=== PATIENT | male | born 1970 | race Two or more races ===

== ENCOUNTER 2023-05-03 22:14 | Observation (INO) | payer BC, OTHER ==
--- NOTE | 2023-05-03 22:23 | ED ---
General Adult HPI <Caleb Burk - Last Filed: 05/03/23 22:26> <Tyler Hayes - Last Filed: 05/04/23 02:01> <Bina Madsen - Last Filed: 05/05/23 11:19> - General Chief complaint: Skin/Abscess/Foreign Body Stated complaint: Abscess Left Thigh Time Seen by Provider: 05/03/23 22:23 - History of Present Illness Initial comments: 52 Old male presents to the ED with a chief complaint of skin problem. States a pproximately a month ago experience pain to the back of his right thigh. Nontender an abscess there and was treated with antibiotics. Most recently started on Bactrim. Despite this, states worsening symptoms. No fever or chills. (Caleb Burk) 52-year-old male transferred from [facility] for surgical evaluation of multiple abscesses on his left lower back and buttock's and medial right thigh. Patient denies fever. He had an inpatient stay at out side hospital with IV antibiotics and was discharged on Bactrim. His abscesses have reoccurred and he was sent for surgical evaluation of multiple abscesses. He has a history of hidradenitis and is a current smoker. (Tyler Hayes) - Related Data Home Medications Medication Instructions Recorded Confirmed Albuterol Sulfate [Albuterol 2 puff INHALATION RT-Q4H PRN 05/04/23 05/04/23 Sulfate Hfa] Apixaban [Eliquis] 5 mg PO BID 05/04/23 05/04/23 Citalopram Hydrobromide [CeleXA] 40 mg PO HS 05/04/23 05/04/23 Dapagliflozin Propanediol [Farxiga] 5 mg PO DAILY 05/04/23 05/04/23 Diltiazem Cd [Cardizem CD] 180 mg PO DAILY 05/04/23 05/04/23 Flecainide Acetate [Tambocor] 100 mg PO Q12H 05/04/23 05/04/23 Montelukast [Singulair] 10 mg PO HS 05/04/23 05/04/23 Omeprazole 40 mg PO DAILY 05/04/23 05/04/23 Pravastatin Sodium [Pravachol] 40 mg PO DAILY 05/04/23 05/04/23 Sulfamethox-Tmp 800-160Mg [Bactrim 1 tab PO BID 05/04/23 05/04/23 DS 800-160 mg] Testosterone Cypionate 200 mg IM Q14D 05/04/23 05/04/23 [Depo-Testosterone] Theophylline 12 Hour [Atif-Dur] 300 mg PO Q12H 05/04/23 05/04/23 Allergies Allergy/AdvReac Type Severity Reaction Status Date / Time diphenhydramine Allergy Dyspnea Verified 05/04/23 07:54 [From Benadryl] ibuprofen [From Motrin] Allergy Dyspnea Verified 05/05/23 08:57 Review of Systems ROS Other: All systems not noted in ROS Statement are negative. <Caleb Burk - Last Filed: 05/03/23 22:26> ROS Other: All systems not noted in ROS Statement are negative. <Tyler Hayes - Last Filed: 05/04/23 02:01> ROS Other: All systems not noted in ROS Statement are negative. <Bina Madsen - Last Filed: 05/05/23 11:19> ROS Statement: Those systems with pertinent positive or pertinent negative responses have been documented in the HPI. General Exam <Caleb Burk - Last Filed: 05/03/23 22:26> General appearance: alert, in no apparent distress Head exam: Present: atraumatic, normocephalic Eye exam: Present: normal appearance, PERRL ENT exam: Present: normal exam Neck exam: Present: normal inspection. Absent: tenderness, meningismus Respiratory exam: Present: normal lung sounds bilaterally. Absent: respiratory distress, wheezes Cardiovascular Exam: Present: regular rate, normal rhythm GI/Abdominal exam: Present: soft. Absent: distended, tenderness Extremities exam: Present: other (Induration in the right medial thigh, multiple palpable abscesses) Back exam: Present: other (Induration with small central fluctuance in the left low back region just above the left gluteal) Neurological exam: Present: alert, oriented X3 Skin exam: Present: warm, dry, intact <Tyler Hayes - Last Filed: 05/04/23 02:01> - General Exam Comments Initial Comments: Visual Physical Exam Vital signs reviewed General: Well-appearing, nontoxic, no acute distress. Head: Normocephalic, atraumatic Eyes: PERRLA, EOMI ENT: Airway patent Chest: Nonlabored breathing Skin: No visual rash, normal skin tone Neuro: Alert and oriented 3 Musculoskeletal: No gross abnormalities (Caleb Burk) Course Vital Signs 05/03/23 05/04/23 05/04/23 22:22 01:38 02:00 Temperature 98.0 F Pulse Rate 72 65 91 Pulse Rate [ Pulse Oximetery ] Respiratory 20 18 18 Rate Blood Pressure 139/79 136/69 138/77 Blood Pressure [Right Arm] O2 Sat by Pulse 94 L 95 95 Oximetry 05/04/23 13:38 Temperature Pulse Rate Pulse Rate [ 62 Pulse Oximetery ] Respiratory 12 Rate Blood Pressure Blood Pressure 138/85 [Right Arm] O2 Sat by Pulse 95 Oximetry Procedures - Incision & Drainage Consent Obtained: verbal consent Indication: Abscess Site: lower extremity Size (cm): 3 (additional abscess adjacet to this one measuring approximately 2cm) Anesthetic Used: lidocaine 1%, with epi Amount (mLs): 5 (5 mL used for adjacent abscess) I&D Cleaning Method: Chloroprep Sterile Field Used?: Yes Scalpel Used: #11 Ultrasound used: No Needle Aspiration Performed?: No Irrigation Performed?: Yes I&D Drainage Obtained: Pus, Blood Culture Obtained?: Yes Patient Tolerated Procedure: well <Bina Madsen - Last Filed: 05/05/23 11:19> Medical Decision Making <Caleb Burk - Last Filed: 05/03/23 22:26> <yTler Hayes - Last Filed: 05/04/23 02:01> - Lab Data Result diagrams: 05/05/23 05:43 05/05/23 05:43 <Bina Madsen - Last Filed: 05/05/23 11:19> - Medical Decision Making Quicknote performed. Signed Caleb Burk PA-C (Caleb Burk) Was pt. sent in by a medical professional or institution ([facility], TECHNOLOGY CONSULTANT, urgent care, hospital, or [place] health care facility...) When possible be specific @ -Sent from [place] for surgical evaluation Did you speak to anyone other than the patient for history (EMS, parent, family, police, friend...)? What history was obtained from this source @ -No Did you review nursing and triage notes (agree or disagree)? Why? @ -I reviewed and agree with nursing and triage notes Were old charts reviewed (outside hosp., previous admission, EMS record, old EKG, old radiological studies, urgent care reports/EKG's, [place] health care facility records)? Report findings @ -No old charts were reviewed Differential Diagnosis (chest pain, altered mental status, abdominal pain women, abdominal pain men, vaginal bleeding, weakness, fever, dyspnea, syncope, headache, dizziness, GI bleed, back pain, seizure, CVA, palpatations, mental health, musculoskeletal)? @ -Abscess, cellulitis, hidradenitis, EKG interpreted by me (3pts min.). @ -As above X-rays interpreted by me (1pt min.). @ -None done CT interpreted by me (1pt min.). @ CT of the abdomen and pelvis and right lower extremity was obtained at outside hospital, images were loaded and reviewed by myself, there is several areas of fluid collection within the right medial thigh with surrounding cellulitis. U/S interpreted by me (1pt. min.). @ -None done What testing was considered but not performed or refused? (CT, X-rays, U/S, labs)? Why? @ -None What meds were considered but not given or refused? Why? @ -None Did you discuss the management of the patient with other professionals (professionals i.e. , PA, TECHNOLOGY CONSULTANT, lab, RT, psych nurse, psychologist social, new account interviewer, teacher, health promotion officer, case sealer)? Give summary @ -EM Was smoking cessation discussed for >3mins.? @ -No Was critical care preformed (if so, how long)? @ -No Were there social determinants of health that impacted care today? How? (Homelessness, low income, unemployed, alcoholism, drug addiction, transportation, low edu. Level, literacy, decrease access to med. care, longterm, rehab)? @ -No Was there de-escalation of care discussed even if they declined (Discuss DNR or withdrawal of care, Hospice)? DNR status @ -No What co-morbidities impacted this encounter? (DM, HTN, Smoking, COPD, CAD, Cancer, CVA, ARF, Chemo, Hep., AIDS, mental health diagnosis, sleep apnea, morbid obesity)? @ -[Diabetes, smoking Was patient admitted / discharged? Hospital course, mention meds given and rou te, prescriptions, significant lab abnormalities, going to OR and other pertinent info. @ -[52 -year-old male transferred from outside hospital for surgical evaluation of multiple abscesses, hidradenitis. Patient having given IV antibiotics prior to transfer. He will be continued on these antibiotics. Repeat laboratory studies will be obtained including CBC and CMP. He should admitted to internal medicine with surgery on consult. Undiagnosed new problem with uncertain prognosis? @ -No Drug Therapy requiring intensive monitoring for toxicity (Heparin, Nitro, Insulin, Cardizem)? @ -No Were any procedures done? @ -No Diagnosis/symptom? @ -[Hidradenitis, multiple abscesses, failed outpatient treatment Acute, or Chronic, or Acute on Chronic? @ -default Uncomplicated (without systemic symptoms) or Complicated (systemic symptoms)? @ -default Side effects of treatment? @ -No Exacerbation, Progression, or Severe Exacerbation? @ -No Poses a threat to life or bodily function? How? (Chest pain, [place], [place], pneumonia, PE, COPD, DKA, ARF, appy, cholecystitis, CVA, Diverticulitis, Homicidal, Suicidal, threat to staff... and all critical care pts) @ -[ Low Risk at this time (Tyler Hayes) Disposition <Caleb Burk - Last Filed: 05/03/23 22:26> Is patient prescribed a controlled substance at d/c from ED?: No Time of Disposition: 01:58 <Tyler Hayes - Last Filed: 05/04/23 02:01> <Bina Madsen - Last Filed: 05/05/23 11:19> Clinical Impression: Hidradenitis suppurativa, Abscess Disposition: ADMITTED IP TO THIS HOSP Condition: Stable
[2023-05-04] MEDS ORDERED: VANCOMYCIN IV PER PHARMACY 1 EACH MISC MISCELLANE PRN (01:50)
[2023-05-04] MEDS ORDERED: IBUPROFEN 400 MG TAB PO PRN (01:51)
[2023-05-04] MEDS ORDERED: NALOXONE 0.4 MG/ML 1 ML VIAL IV PRN (01:51)
[2023-05-04] MEDS ORDERED: PIPERACILLIN-TAZOBACTAM 3.375 GM in SODIUM CHLORIDE 0.9% 100 ML IVPB STA (01:51)
[2023-05-04] MEDS ORDERED: ACETAMINOPHEN TAB 325 MG TAB PO PRN (01:51)
[2023-05-04] MEDS ORDERED: VANCOMYCIN 2,000 MG in SODIUM CHLORIDE 0.9% 500 ML 500 ML IVPB STA (01:52)
[2023-05-04] MEDS ORDERED: MORPHINE SULFATE 4 MG/ML SYRINGE IVP STA ×3 (02:17→09:16)
[2023-05-04] MEDS: SODIUM CHLORIDE 0.9% 1,000 ML IV SCH ×2 (02:47→16:37)
[2023-05-04 03:35] LABS: Basophils # (A) 0.1 k/uL (0-0.2); Basophils % (A) 1 %; Eosinophils # (A) 0.3 k/uL (0-0.7); Eosinophils % (A) 5 %; HCT 45.5 % (39.0-53.0); HGB 15.2 gm/dL (13.0-17.5); Lymphocytes # (A) 1.5 k/uL (1.0-4.8); Lymphocytes % (A) 25 %; MCH 29.9 pg (25.0-35.0); MCHC 33.3 g/dL (31.0-37.0); MCV 89.7 fL (80.0-100.0); Mean Platelet Volume 8.8; Monocytes # (A) 0.6 k/uL (0-1.0); Monocytes % (A) 10 %; Neutrophils # (A) 3.3 k/uL (1.3-7.7); Neutrophils % (A) 55 %; Platelet Count 185 k/uL (150-450); RBC 5.07 m/uL (4.30-5.90); RDW 13.6 % (11.5-15.5)
[2023-05-04 03:36] LABS: ALT 24 U/L (4-49); AST 24 U/L (17-59); African American GFR (CKD) 89 (>60 ml/min/1.73 sqM); Albumin 3.8 g/dL (3.5-5.0); Alkaline Phosphatase 54 U/L (38-126); Anion Gap 10 mmol/L; Blood Urea Nitrogen 28 mg/dL (9-20); Calcium 8.8 mg/dL (8.4-10.2); Carbon Dioxide 25 mmol/L (22-30); Chloride 100 mmol/L (98-107); Glucose 209 mg/dL (74-99); Non-African American GFR(CKD) 77 (>60 ml/min/1.73 sqM); Sodium 135 mmol/L (137-145); Total Bilirubin 0.4 mg/dL (0.2-1.3); Total Protein 6.6 g/dL (6.3-8.2)
[2023-05-04] MEDS ORDERED: KETOROLAC 15 MG/ML 1 ML VIAL IVP STA (09:16)
[2023-05-04] MEDS ORDERED: LIDOCAINE 1%-EPI 1:100,000 50 ML VIAL SQ STA (09:16)
[2023-05-04] MEDS ORDERED: PIPERACILLIN-TAZOBACTAM 3.375 GM in SODIUM CHLORIDE 0.9% 100 ML IVPB SCH (10:00)
[2023-05-04 11:57] LABS: Glucose,Whole Blood 248 mg/dL (70-110)
[2023-05-04] MEDS ORDERED: ALBUTEROL NEBULIZED 2.5 MG/3 ML INHALATION PRN (12:42)
--- NOTE | 2023-05-04 12:46 | P.HPIM ---
History of Present Illness H&P Date: 05/04/23 History of present illness; patient 72-year-old gentleman past medical history s ignificant for hidradenitis suppurativa, skin abscesses who presented ER for evaluation for multiple skin abscesses. Patient was being treated outpatient for abscess on the medial side of his right thigh with oral Bactrim. Patient started that he was all right one month back when he started noticing swelling on the medial side of his right thigh, it gradually becoming enlarged and painful. It was no complain a fever or chills. No nausea, abdominal pain. No complaint of chest pain or shortness of breath. Because of this patient went to ER which drained it and placed him on oral antibiotics. Swelling and pain continued to persist even while on antibiotics. Patient went back to the [facility]. Patient was later transferred from [facility] to [facility] Initial lab work done in the ER showed WBC 6, hemoglobin 15.2, platelet count 185, sodium 1:30, potassium 4, BUNs 28, creatinine 1.09, AST 24, AST 24 Patient was admitted to medicine service REVIEW OF SYSTEMS: CONSTITUTIONAL: No fever, no malaise, no fatigue. HEENT: No recent visual problems or hearing problems. Denied any sore throat. CARDIOVASCULAR: No chest pain, orthopnea, PND, no palpitations, no syncope. PULMONARY: No shortness of breath, no cough, no hemoptysis. GASTROINTESTINAL: No diarrhea, no nausea, no vomiting, no abdominal pain. NEUROLOGICAL: No headaches, no weakness, no numbness. HEMATOLOGICAL: Denies any bleeding or petechiae. GENITOURINARY: Denies any burning micturition, frequency, or urgency. MUSCULOSKELETAL/RHEUMATOLOGICAL: Redness on medial side of right thigh ENDOCRINE: Denies any polyuria or polydipsia. The rest of the 14-point review of systems is negative. PHYSICAL EXAMINATION: GENERAL: The patient is alert and oriented x3, not in any acute distress. Well developed, well nourished. HEENT: Pupils are round and equally reacting to light. EOMI. No scleral icterus. No conjunctival pallor. Normocephalic, atraumatic. No pharyngeal erythema. No thyromegaly. CARDIOVASCULAR: S1 and S2 present. No murmurs, rubs, or gallops. PULMONARY: Chest is clear to auscultation, no wheezing or crackles. ABDOMEN: Soft, nontender, nondistended, normoactive bowel sounds. No palpable organomegaly. MUSCULOSKELETAL: No joint swelling or deformity. EXTREMITIES: Erythema medial side of his right thigh, fluctuation not appreciated NEUROLOGICAL: Gross neurological examination did not reveal any focal deficits. SKIN: Multiple skin abscesses on the back, thigh and buttock area Assessment and plan Right thigh abscess Multiple skin abscesses Failed outpatient treatment History of hydradenitis suppurativa Monitor vital signs Monitor CBC Monitor CMP Continue wound care. Continue IV Zosyn and vancomycin Continue pain management Consults surgery consult ID Resume home meds Labs and medication were reviewed.. Continue same treatment. Continue with symptomatic treatment. Resume home medication. Monitor labs and vitals. DVT and GI prophylaxis. Further recommendations as per clinical course of the patient Dictation was produced using [employer] dictation software. please excuse any grammatical, word or spelling errors. Past Medical History Past Medical History: COPD, Diabetes Mellitus, Hyperlipidemia, Hypertension, Rheumatoid Arthritis (RA) Past Surgical History: Orthopedic Surgery Past Psychological History: No Psychological Hx Reported Smoking Status: Current every day smoker Past Alcohol Use History: Occasional Past Drug Use History: None Reported Medications and Allergies Home Medications Medication Instructions Recorded Confirmed Type Albuterol Sulfate [Albuterol 2 puff INHALATION RT-Q4H PRN 05/04/23 05/04/23 H istory Sulfate Hfa] Apixaban [Eliquis] 5 mg PO BID 05/04/23 05/04/23 History Citalopram Hydrobromide [CeleXA] 40 mg PO HS 05/04/23 05/04/23 History Dapagliflozin Propanediol [Farxiga] 5 mg PO DAILY 05/04/23 05/04/23 History Diltiazem Cd [Cardizem CD] 180 mg PO DAILY 05/04/23 05/04/23 History Flecainide Acetate [Tambocor] 100 mg PO Q12H 05/04/23 05/04/23 History Montelukast [Singulair] 10 mg PO HS 05/04/23 05/04/23 History Omeprazole 40 mg PO DAILY 05/04/23 05/04/23 History Pravastatin Sodium [Pravachol] 40 mg PO DAILY 05/04/23 05/04/23 History Sulfamethox-Tmp 800-160Mg [Bactrim 1 tab PO BID 05/04/23 05/04/23 History DS 800-160 mg] Testosterone Cypionate 200 mg IM Q14D 05/04/23 05/04/23 History [Depo-Testosterone] Theophylline 12 Hour [Atif-Dur] 300 mg PO Q12H 05/04/23 05/04/23 History Allergies Allergy/AdvReac Type Severity Reaction Status Date / Time diphenhydramine Allergy Dyspnea Verified 05/04/23 07:54 [From Benadryl] Physical Exam Vitals: Vital Signs Temp Pulse Resp BP Pulse Ox 05/04/23 02:00 91 18 138/77 95 05/04/23 01:38 65 18 136/69 95 05/03/23 22:22 98.0 F 72 20 139/79 94 L Intake and Output 05/03/23 05/04/23 05/04/23 22:59 06:59 14:59 Other: Weight 136.078 kg Results CBC & Chem 7: 05/04/23 03:03 05/04/23 03:03 Labs: Abnormal Lab Results - Last 24 Hours (Table) 05/04/23 Range/Units 03:03 Sodium 135 L (137-145) mmol/L BUN 28 H (9-20) mg/dL Glucose 209 H (74-99) mg/dL
--- NOTE | 2023-05-04 13:34 | P.GSCN ---
History of Present Illness Consult date: 05/04/23 History of present illness: CHIEF COMPLAINT: Right groin abscess HISTORY OF PRESENT ILLNESS: This is a 52-year-old male who has been dealing with right groin abscess an abscess on his back for about 2 months. He initially was at [facility] with IV antibiotics for about 2 weeks and also had an I&D of the right groin abscess at that time. He completed antibiotic treatment was showing improvement after treatment finished he started to have a flare up again and these abscesses. He tried oral antibiotics with no improvement. He then went to [facility] they did a computed tomography scan of the right lower extremity which reported findings compatible with cellulitis with abscess formation and computed tomography scan abdomen and pelvis no evidence for acute abdominal process. Multiple posterior lower back areas with suspected focal inflammation. Patient does have a known history of diabetes. Does have a history of prior abscesses and hidradenitis suppurativa. He is also on Eliquis for Afib. Last dose was last night. Patient seen and examined with Dr. alexander PAST MEDICAL HISTORY: Hidradenitis suppurativa, skin abscesses, diabetes mellitus, atrial fibrillation PAST SURGICAL HISTORY: Past I&D and skin abscess MEDICATIONS: See below ALLERGIES: See below SOCIAL HISTORY: No illicit drug use. REVIEW OF SYSTEMS: CONSTITUTIONAL: Denies fever or chills. HEENT: Denies blurred vision, vision changes, or eye pain. Denies hemoptysis CARDIOVASCULAR: Denies chest pain or pressure. RESPIRATORY: No shortness of breath. GASTROINTESTINAL: See HPI for pertinent findings HEMATOLOGIC: Denies bleeding disorders. GENITOURINARY: Denies any blood in urine or increased urinary frequency. SKIN: Denies pruitis. Denies rash. PHYSICAL EXAM: VITAL SIGNS: Reviewed GENERAL: Well-developed in no acute distress. HEENT: No sclera icterus. Extraocular movements grossly intact. Moist buccal mucosa. Head is atraumatic, normocephalic. No nasal drainage. ABDOMEN: Soft. Nondistended. Nontender right groin swelling with induration and fluctuance NEUROLOGIC: Alert and oriented. Cranial nerves II through XII grossly intact. SKIN:right groin swelling with induration and fluctuance. Back with a couple of areas of induration lower back LABORATORY DATA: WBC 6.0 Hgb 15.2 platelets 185 Sodium 135 potassium 4.0 cr 1.09 Glucose 248 IMAGING: Computed tomography scan as stated above ASSESSMENT: 1. Right groin abscess 2. Hidradenitis suppurativa 3. Multiple areas on the back with skin inflammation 4. Failed outpatient management PLAN: -Continue IV antibiotics -Recommend incision and drainage of right groin abscess -Apply warm compresses -Recommend close management of Diabetes Physician Helper/Driver note has been reviewed by physician. Signing provider agrees with the documented findings, assessment, and plan of care. Past Medical History Past Medical History: COPD, Diabetes Mellitus, Hyperlipidemia, Hypertension, Rheumatoid Arthritis (RA) Past Surgical History: Orthopedic Surgery Past Psychological History: No Psychological Hx Reported Smoking Status: Current every day smoker Past Alcohol Use History: Occasional Past Drug Use History: None Reported Medications and Allergies Home Medications Medication Instructions Recorded Confirmed Type Albuterol Sulfate [Albuterol 2 puff INHALATION RT-Q4H PRN 05/04/23 05/04/23 History Sulfate Hfa] Apixaban [Eliquis] 5 mg PO BID 05/04/23 05/04/23 History Citalopram Hydrobromide [CeleXA] 40 mg PO HS 05/04/23 05/04/23 History Dapagliflozin Propanediol [Farxiga] 5 mg PO DAILY 05/04/23 05/04/23 History Diltiazem Cd [Cardizem CD] 180 mg PO DAILY 05/04/23 05/04/23 History Flecainide Acetate [Tambocor] 100 mg PO Q12H 05/04/23 05/04/23 History Montelukast [Singulair] 10 mg PO HS 05/04/23 05/04/23 History Omeprazole 40 mg PO DAILY 05/04/23 05/04/23 History Pravastatin Sodium [Pravachol] 40 mg PO DAILY 05/04/23 05/04/23 History Sulfamethox-Tmp 800-160Mg [Bactrim 1 tab PO BID 05/04/23 05/04/23 History DS 800-160 mg] Testosterone Cypionate 200 mg IM Q14D 05/04/23 05/04/23 History [Depo-Testosterone] Theophylline 12 Hour [Atif-Dur] 300 mg PO Q12H 05/04/23 05/04/23 History Allergies Allergy/AdvReac Type Severity Reaction Status Date / Time diphenhydramine Allergy Dyspnea Verified 05/04/23 07:54 [From [facility]] Surgical - Exam Vital Signs Temp Pulse Resp BP Pulse Ox 98.0 F 72 20 139/79 94 L 05/03/23 22:22 05/03/23 22:22 05/03/23 22:22 05/03/23 22:22 05/03/23 22:22 Results - Labs 05/04/23 03:03 05/04/23 03:03 Abnormal Lab Results - Last 24 Hours (Table) 05/04/23 Range/Units 03:03 Sodium 135 L (137-145) mmol/L BUN 28 H (9-20) mg/dL Glucose 209 H (74-99) mg/dL Diabetes panel 05/04/23 Range/Units 03:03 Sodium 135 L (137-145) mmol/L Potassium 4.0 (3.5-5.1) mmol/L Chloride 100 (98-107) mmol/L Carbon Dioxide 25 (22-30) mmol/L BUN 28 H (9-20) mg/dL Creatinine 1.09 (0.66-1.25) mg/dL Glucose 209 H (74-99) mg/dL Calcium 8.8 (8.4-10.2) mg/dL AST 24 (17-59) U/L ALT 24 (4-49) U/L Alkaline Phosphatase 54 (38-126) U/L Total Protein 6.6 (6.3-8.2) g/dL Albumin 3.8 (3.5-5.0) g/dL Calcium panel 05/04/23 Range/Units 03:03 Calcium 8.8 (8.4-10.2) mg/dL Albumin 3.8 (3.5-5.0) g/dL Pituitary panel 05/04/23 Range/Units 03:03 Sodium 135 L (137-145) mmol/L Potassium 4.0 (3.5-5.1) mmol/L Chloride 100 (98-107) mmol/L Carbon Dioxide 25 (22-30) mmol/L BUN 28 H (9-20) mg/dL Creatinine 1.09 (0.66-1.25) mg/dL Glucose 209 H (74-99) mg/dL Calcium 8.8 (8.4-10.2) mg/dL Adrenal panel 05/04/23 Range/Units 03:03 Sodium 135 L (137-145) mmol/L Potassium 4.0 (3.5-5.1) mmol/L Chloride 100 (98-107) mmol/L Carbon Dioxide 25 (22-30) mmol/L BUN 28 H (9-20) mg/dL Creatinine 1.09 (0.66-1.25) mg/dL Glucose 209 H (74-99) mg/dL Calcium 8.8 (8.4-10.2) mg/dL Total Bilirubin 0.4 (0.2-1.3) mg/dL AST 24 (17-59) U/L ALT 24 (4-49) U/L Alkaline Phosphatase 54 (38-126) U/L Total Protein 6.6 (6.3-8.2) g/dL Albumin 3.8 (3.5-5.0) g/dL
[2023-05-04] MEDS: DILTIAZEM CD 180 MG CAP.ER.24H PO SCH (13:40)
[2023-05-04] MEDS: FLECAINIDE 50 MG TAB PO SCH ×2 (13:40→20:34)
[2023-05-04] MEDS: PANTOPRAZOLE 40 MG TABLET PO SCH (13:40)
[2023-05-04] MEDS: VANCOMYCIN 2,000 MG in SODIUM CHLORIDE 0.9% 500 ML 500 ML IVPB SCH (14:26)
[2023-05-04 17:29] LABS: Glucose,Whole Blood 137 mg/dL (70-110)
[2023-05-04] MEDS: APIXABAN 5 MG TAB PO SCH (17:33)
[2023-05-04] MEDS: AMPICILLIN-SULBACTAM 3 GM in SODIUM CHLORIDE 0.9% 100 ML IVPB SCH (18:20)
[2023-05-04] MEDS: CITALOPRAM HYDROBROMIDE 20 MG TAB PO SCH (20:34)
[2023-05-04] MEDS: MONTELUKAST 10 MG TAB PO SCH (20:34)
[2023-05-04 21:26] LABS: Glucose,Whole Blood 211 mg/dL (70-110)
[2023-05-04 22:00] VITALS: RESP 16
--- NOTE | 2023-05-04 23:08 | P.CONS ---
History of Present Illness - Reason for Consult Consult date: 05/04/23 Skin abscess with multi failure of outpatient Requesting physician: Lore Carrillo - Chief Complaint Right posterior thigh area pain swelling and drainage x days - History of Present Illness Patient is a 52-year-old male with a past medical history significant for diabetes mellitus hypertension hyperlipidemia rheumatoid arthritis COPD apparently the patient did have a history of recurrent skin and soft tissue infection especially to the right upper posterior thigh area patient presenting to the hospital for evaluation of increasing swelling redness and drainage patient apparently recently has been treated with an IV antibiotic therapy subsequently discharged on Bactrim DS however the patient did not have improvement especially to the right posterior thigh/gluteal area abscess which has been increasing in size becoming more painful with more swelling redness and did have some bloodstained drainage patient did have some chills but denies high-grade fever patient denies having any chest pain shortness of breath or cough no nausea vomiting abdominal pain or any diarrhea on presentation to the hospital the patient was afebrile and no fever have recorded subsequently patient was not tachycardic hypotensive or hypoxic white count of 6.0 creatinine is 1.09, liver enzymes are normal patient was started on vancomycin and Zosyn infectious disease was consulted for further management of antibiotic therapy General surgery has been consulted for possible drainage Review of Systems Positive point and negatives has been mentioned in the HPI, complete review of systems was performed and all other systems are negative Past Medical History Past Medical History: COPD, Diabetes Mellitus, Hyperlipidemia, Hypertension, Rheumatoid Arthritis (RA) Past Surgical History: Orthopedic Surgery Past Psychological History: No Psychological Hx Reported Smoking Status: Current every day smoker Past Alcohol Use History: Occasional Past Drug Use History: None Reported Medications and Allergies Home Medications Medication Instructions Recorded Confirmed Type Albuterol Sulfate [Albuterol 2 puff INHALATION RT-Q4H PRN 05/04/23 05/04/23 History Sulfate Hfa] Apixaban [Eliquis] 5 mg PO BID 05/04/23 05/04/23 History Citalopram Hydrobromide [CeleXA] 40 mg PO HS 05/04/23 05/04/23 History Dapagliflozin Propanediol [Farxiga] 5 mg PO DAILY 05/04/23 05/04/23 History Diltiazem Cd [Cardizem CD] 180 mg PO DAILY 05/04/23 05/04/23 History Flecainide Acetate [Tambocor] 100 mg PO Q12H 05/04/23 05/04/23 History Montelukast [Singulair] 10 mg PO HS 05/04/23 05/04/23 History Omeprazole 40 mg PO DAILY 05/04/23 05/04/23 History Pravastatin Sodium [Pravachol] 40 mg PO DAILY 05/04/23 05/04/23 History Testosterone Cypionate 200 mg IM Q14D 05/04/23 05/04/23 History [Depo-Testosterone] Theophylline 12 Hour [Atif-Dur] 300 mg PO Q12H 05/04/23 05/04/23 History Amoxic-Pot Clav 875-125Mg 1 tab PO BID 10 Days #20 tab 05/06/23 Rx [Augmentin 875-125] Allergies Allergy/AdvReac Type Severity Reaction Status Date / Time diphenhydramine Allergy Dyspnea Verified 05/04/23 07:54 [From Benadryl] ibuprofen [From Motrin] Allergy Dyspnea Verified 05/05/23 08:57 Physical Exam Vitals: Vital Signs Temp Pulse Resp BP Pulse Ox 05/04/23 02:00 91 18 138/77 95 05/04/23 01:38 65 18 136/69 95 05/03/23 22:22 98.0 F 72 20 139/79 94 L Intake and Output 05/03/23 05/04/23 05/04/23 22:59 06:59 14:59 Output Total 800 Balance -800 Output: Urine 800 Other: Voiding Method Toilet # Voids 1 Weight 136.078 kg Results CBC & Chem 7: 05/06/23 04:49 05/06/23 04:49 Labs: Abnormal Lab Results - Last 24 Hours (Table) 05/04/23 05/04/23 Range/Units 03:03 11:55 Sodium 135 L (137-145) mmol/L BUN 28 H (9-20) mg/dL Glucose 209 H (74-99) mg/dL POC Glucose (mg/dL) 248 H (70-110) mg/dL Assessment and Plan Plan: 1patient presented to hospital with increasing pain swelling redness to the right posterior thigh area in this patient who did have history of hidradenitis recently received a course of IV followed by oral Bactrim DS failing oral antibiotic therapy, we will need to cover for both resistant gram-positive as well as gram-negative pathogen 2-await surgical debridement and deep culture 3-we will continue patient on vancomycin pharmacy to dose while watching his kidney function closely however switch Zosyn to Unasyn to decrease risk of nephrotoxicity We will follow on clinical condition and cultures to further adjust medication if needed Thank you for this consultation we will follow the patient along with you Dictation was produced using [employer] dictation software. please excuse any grammatical, word or spelling errors. Time with Patient: Greater than 30
[2023-05-05] MEDS: SODIUM CHLORIDE 0.9% 1,000 ML IV SCH (00:30)
[2023-05-05] MEDS: AMPICILLIN-SULBACTAM 3 GM in SODIUM CHLORIDE 0.9% 100 ML IVPB SCH ×4 (00:39→17:55)
[2023-05-05] MEDS: VANCOMYCIN 2,000 MG in SODIUM CHLORIDE 0.9% 500 ML 500 ML IVPB SCH ×2 (02:18→15:06)
[2023-05-05 06:21] LABS: Glucose,Whole Blood 180 mg/dL (70-110)
[2023-05-05] MEDS: PANTOPRAZOLE 40 MG TABLET PO SCH (06:28)
[2023-05-05] MEDS: DAPAGLIFLOZIN PROPANEDIOL 5 MG TABLET PO SCH (08:53)
[2023-05-05] MEDS: PRAVASTATIN SODIUM 40 MG TAB PO SCH (08:53)
[2023-05-05] MEDS: THEOPHYLLINE 24 HOUR 300 MG CAP.ER.24H PO SCH (08:53)
[2023-05-05] MEDS: APIXABAN 5 MG TAB PO SCH ×2 (08:53→20:10)
[2023-05-05] MEDS: FLECAINIDE 50 MG TAB PO SCH ×2 (08:53→20:10)
[2023-05-05 09:03] LABS: ALT 29 U/L (10-49); AST 19 U/L (14-35); Albumin 3.9 g/dL (3.8-4.9); Albumin/Globulin Ratio 1.62 Ratio (1.60-3.17); Alkaline Phosphatase 48 U/L (41-126); BUN/Creat Ratio 18.75 Ratio (12.00-20.00); Calcium 8.7 mg/dL (8.7-10.3); Carbon Dioxide 24.6 mmol/L (21.6-31.8); Chloride 104 mmol/L (96-109); Globulin 2.4 g/dL (1.6-3.3); Glucose 206 mg/dL (70-110); Potassium 4.5 mmol/L (3.5-5.5); Sodium 138 mmol/L (135-145); Total Bilirubin 0.3 mg/dL (0.3-1.2); Total Protein 6.3 g/dL (6.2-8.2)
[2023-05-05 10:11] LABS: HCT 45.8 % (39.6-50.0); MCH 29.5 pg (27.0-32.0); MCHC 32.8 g/dL (32.0-37.0); MCV 90.2 FL (80.0-97.0); Mean Platelet Volume 11.1 FL (9.5-12.2); NRBC Per 100 WBC 0 X 10*3/uL (0.00-0.01); Platelet Count 221 X 10*3/uL (140-440); RBC 5.08 X 10*6/uL (4.40-5.60); RDW 14.2 % (11.5-14.5); WBC 5.45 X 10*3/uL (4.50-10.00)
[2023-05-05] MEDS: DILTIAZEM CD 180 MG CAP.ER.24H PO SCH (10:21)
[2023-05-05] MEDS: HYDROcodone/APAP 5-325MG 1 EACH TAB PO PRN ×2 (11:02→22:46)
--- NOTE | 2023-05-05 14:09 | P.PN ---
Subjective Progress Note Date: 05/05/23 CHIEF COMPLAINT: Right thigh abscess HISTORY OF PRESENT ILLNESS: Patient had I&D of the right thigh in the ER. Cultures were obtained and are pending. His been decrease in inflammation and pain. Patient is on IV antibiotics. Afebrile. WBC 5.45 hgb 15 platelets 221 PHYSICAL EXAM: VITAL SIGNS: Reviewed. GENERAL: Well-developed in no acute distress. ABDOMEN: Soft. Nondistended. Nontender. NEUROLOGIC: Alert and oriented. Cranial nerves II through XII grossly intact. SKIN: right thigh abscess decrease induration. No erythema. No drainage at this time. ASSESSMENT: 1. Hidradenitis suppurativa of the right thigh PLAN: -Patient can be discharged from surgical standpoint when medically cleared -Antibiotics per infectious disease -Continue warm compresses -Shower daily Physician [employer] note has been reviewed by physician. Signing provider agrees with the documented findings, assessment, and plan of care. Objective - Vital Signs Vital signs: Vital Signs Temp 98.0 F 05/05/23 13:46 Pulse 56 L 05/05/23 13:46 Resp 16 05/05/23 13:46 BP 158/77 05/05/23 13:46 Pulse Ox 98 05/05/23 13:46 FiO2 Intake & Output 05/04/23 05/05/23 05/05/23 18:59 06:59 18:59 Intake Total 1580 236 Output Total 1550 Balance 30 236 Weight 136.078 kg Intake: Oral 1580 236 Output: Urine 1550 Other: Voiding Method Toilet Toilet Toilet Urinal Urinal Urinal # Voids 1 4 3 # Bowel Movements 1 - Labs CBC & Chem 7: 05/05/23 05:43 05/05/23 05:43 Labs: Abnormal Lab Results - Last 24 Hours (Table) 05/04/23 05/04/23 05/05/23 Range/Units 17:27 20:37 05:43 Glucose 206 H (70-110) mg/dL POC Glucose (mg/dL) 137 H 211 H (70-110) mg/dL 05/05/23 Range/Units 06:19 Glucose (70-110) mg/dL POC Glucose (mg/dL) 180 H (70-110) mg/dL Microbiology - Last 24 Hours (Table) 05/04/23 12:39 Gram Stain - Preliminary Leg - Right Wound Culture - Preliminary
--- NOTE | 2023-05-05 14:18 | P.PN ---
Subjective Progress Note Date: 05/05/23 patient 72-year-old gentleman past medical history significant for hidradenitis suppurativa, skin abscesses who presented ER for evaluation for multiple skin abscesses. Patient was being treated outpatient for abscess on the medial side of his right thigh with oral Bactrim. Patient started that he was all right one month back when he started noticing swelling on the medial side of his right thigh, it gradually becoming enlarged and painful. It was no complain a fever or chills. No nausea, abdominal pain. No complaint of chest pain or shortness of breath. Because of this patient went to ER which drained it and placed him on oral antibiotics. Swelling and pain continued to persist even while on antibiotics. Patient went back to the [facility]. Patient was later transferred from [facility] to [facility] Initial lab work done in the ER showed WBC 6, hemoglobin 15.2, platelet count 185, sodium 1:30, potassium 4, BUNs 28, creatinine 1.09, AST 24, AST 24 Patient was admitted to medicine service 05/05. Patient seen and examined. Status post I&D of the right thigh in the ER. Cultures were obtained and are pending, patient needs to remain the hospital until cultures are finalized. Denies any thigh pain. States another small lesion ruptured and drained on the left side of the lower part of his abdominal. REVIEW OF SYSTEMS: CONSTITUTIONAL: No fever, no malaise,. CARDIOVASCULAR: No chest pain, no palpitations, no syncope. PULMONARY: No shortness of breath, no cough, GASTROINTESTINAL: No diarrhea, no nausea, no vomiting, no abdominal pain. NEUROLOGICAL: No headaches, no weakness, PHYSICAL EXAMINATION: GENERAL: The patient is alert and oriented x3, not in any acute distress. Well developed, well nourished. HEENT: Pupils are round and equally reacting to light. EOMI. No scleral icterus. No conjunctival pallor. Normocephalic, atraumatic. No pharyngeal erythema. No thyromegaly. CARDIOVASCULAR: S1 and S2 present. No murmurs, rubs, or gallops. PULMONARY: Chest is clear to auscultation, no wheezing or crackles. ABDOMEN: Soft, nontender, nondistended, normoactive bowel sounds. No palpable organomegaly. MUSCULOSKELETAL: No joint swelling or deformity. EXTREMITIES: Right thigh erythema in the upper medial part of the thigh seen NEUROLOGICAL: Gross neurological examination did not reveal any focal deficits. SKIN: No rashes. Assessment and plan Right thigh abscess Multiple skin abscesses Failed outpatient treatment History of hydradenitis suppurativa Monitor vital signs Monitor CBC Monitor CMP Continue wound care. Follow-up on wound cultures Continue IV Unasyn and pharmacy to dose vancomycin Status post I&D of the right thigh in the ER. Cultures were obtained and are pending, patient needs to remain the hospital until cultures are finalized Surgery following ID following Labs and medication were reviewed.. Continue same treatment. Continue with symptomatic treatment. Resume home medication. Monitor labs and vitals. DVT and GI prophylaxis. Further recommendations as per clinical course of the patient Dictation was produced using [employer] dictation software. please excuse any grammatical, word or spelling errors. Objective - Vital Signs Vital signs: Vital Signs Temp 98.0 F 05/05/23 13:46 Pulse 56 L 05/05/23 13:46 Resp 16 05/05/23 13:46 BP 158/77 05/05/23 13:46 Pulse Ox 98 05/05/23 13:46 FiO2 Intake & Output 05/04/23 05/05/23 05/05/23 18:59 06:59 18:59 Intake Total 1580 236 Output Total 1550 Balance 30 236 Weight 136.078 kg Intake: Oral 1580 236 Output: Urine 1550 Other: Voiding Method Toilet Toilet Toilet Urinal Urinal Urinal # Voids 1 4 3 # Bowel Movements 1 - Labs CBC & Chem 7: 05/05/23 05:43 05/05/23 05:43 Labs: Abnormal Lab Results - Last 24 Hours (Table) 05/04/23 05/04/23 05/05/23 Range/Units 17:27 20:37 05:43 Glucose 206 H (70-110) mg/dL POC Glucose (mg/dL) 137 H 211 H (70-110) mg/dL 05/05/23 Range/Units 06:19 Glucose (70-110) mg/dL POC Glucose (mg/dL) 180 H (70-110) mg/dL Microbiology - Last 24 Hours (Table) 05/04/23 12:39 Gram Stain - Preliminary Leg - Right Wound Culture - Preliminary
--- NOTE | 2023-05-05 16:36 | P.PN ---
Subjective Progress Note Date: 05/05/23 Principal diagnosis: Reason for follow up is right posterior thigh area abscess failing outpatient antibiotic therapy Patient is a 52-year-old male with a past medical history significant for diabetes mellitus hypertension hyperlipidemia rheumatoid arthritis COPD apparently the patient did have a history of recurrent skin and soft tissue infection especially to the right upper posterior thigh area patient presenting to the hospital for evaluation of increasing swelling redness and drainage and feeling outpatient oral Bactrim DS therapy On today's evaluation that is05/05/2023, the patient denies any fever or any chills, the patient is breathing comfortably on room air, patient denies chest pain shortness of breath, or cough, patient denies Abdominal pain and denies any nausea/vomiting or diarrhea , the patient pain to the right posterior thigh area has decreased in intensity Patient did have a white count of 5.45, creatinine 0.8, cultures are currently pending Objective - Vital Signs Vital signs: Vital Signs Temp 97.7 F 05/05/23 07:00 Pulse 58 L 05/05/23 07:00 Resp 16 05/05/23 07:00 BP 132/64 05/05/23 07:00 Pulse Ox 97 05/05/23 07:00 FiO2 Intake & Output 05/04/23 05/05/23 05/05/23 18:59 06:59 18:59 Intake Total 1580 118 Output Total 1550 Balance 30 118 Weight 136.078 kg Intake: Oral 1580 118 Output: Urine 1550 Other: Voiding Method Toilet Toilet Toilet Urinal Urinal Urinal # Voids 1 4 - Exam GENERAL DESCRIPTION: Middle-age male lying in bed in no distress RESPIRATORY SYSTEM: Unlabored breathing , clear to auscultation anteriorly HEART: S1 S2 regular rate and rhythm , ABDOMEN: Soft , no tenderness EXTREMITIES: Right posterior thigh area induration slightly decreased no drainage - Labs CBC & Chem 7: 05/05/23 05:43 05/05/23 05:43 Labs: Abnormal Lab Results - Last 24 Hours (Table) 05/04/23 05/04/23 05/05/23 Range/Units 17:27 20:37 05:43 Glucose 206 H (70-110) mg/dL POC Glucose (mg/dL) 137 H 211 H (70-110) mg/dL 05/05/23 Range/Units 06:19 Glucose (70-110) mg/dL POC Glucose (mg/dL) 180 H (70-110) mg/dL Microbiology - Last 24 Hours (Table) 05/04/23 12:39 Gram Stain - Preliminary Leg - Right Wound Culture - Preliminary Assessment and Plan (1) Abscess of right thigh Current Visit: Yes Status: Acute Code(s): L02.415 - CUTANEOUS ABSCESS OF RIGHT LOWER LIMB SNOMED Code(s): 26283254505089174 (2) Hidradenitis suppurativa Current Visit: Yes Status: Acute Code(s): L73.2 - HIDRADENITIS SUPPURATIVA SNOMED Code(s): 46972550 (3) Failure of outpatient treatment Current Visit: Yes Status: Acute Code(s): Z78.9 - OTHER SPECIFIED HEALTH STATUS SNOMED Code(s): 356326761 Plan: 1patient presented to hospital with increasing pain swelling redness to the right posterior thigh area in this patient who did have history of hidradenitis recently received a course of IV followed by oral Bactrim DS failing oral antibiotic therapy, we will need to cover for both resistant gram-positive as well as gram-negative pathogen 2Patient has been evaluated by general surgery did not recommending debridement 3-we will continue patient on vancomycin pharmacy to dose and Unasyn while waiting for the cultures to finalize will determine his discharge antibiotics as the patient is already failed outpatient Bactrim DS therapy Dictation was produced using [employer] dictation software. please excuse any g rammatical, word or spelling errors. Time with Patient: Less than 30
[2023-05-05] MEDS: CITALOPRAM HYDROBROMIDE 20 MG TAB PO SCH (20:10)
[2023-05-05] MEDS: MONTELUKAST 10 MG TAB PO SCH (20:10)
[2023-05-06] MEDS: AMPICILLIN-SULBACTAM 3 GM in SODIUM CHLORIDE 0.9% 100 ML IVPB SCH ×3 (00:21→12:21)
[2023-05-06] MEDS: VANCOMYCIN 2,000 MG in SODIUM CHLORIDE 0.9% 500 ML 500 ML IVPB SCH (03:39)
[2023-05-06 05:29] LABS: ALT 26 U/L (4-49); AST 23 U/L (17-59); African American GFR (CKD) >90 (>60 ml/min/1.73 sqM); Albumin 3.6 g/dL (3.5-5.0); Albumin/Globulin Ratio 1.3; Alkaline Phosphatase 53 U/L (38-126); Anion Gap 8 mmol/L; Blood Urea Nitrogen 15 mg/dL (9-20); Calcium 8.5 mg/dL (8.4-10.2); Carbon Dioxide 27 mmol/L (22-30); Chloride 102 mmol/L (98-107); Globulin 2.8 g/dL; Glucose 208 mg/dL (74-99); Non-African American GFR(CKD) >90 (>60 ml/min/1.73 sqM); Sodium 137 mmol/L (137-145); Total Bilirubin 0.6 mg/dL (0.2-1.3); Total Protein 6.4 g/dL (6.3-8.2)
[2023-05-06] MEDS: PANTOPRAZOLE 40 MG TABLET PO SCH (06:31)
[2023-05-06 08:27] VITALS: BP 162/78; PULSE 57; TEMP 97.4
[2023-05-06] MEDS: THEOPHYLLINE 24 HOUR 300 MG CAP.ER.24H PO SCH (08:28)
[2023-05-06] MEDS: FLECAINIDE 50 MG TAB PO SCH (08:28)
[2023-05-06] MEDS: DILTIAZEM CD 180 MG CAP.ER.24H PO SCH (08:28)
[2023-05-06] MEDS: APIXABAN 5 MG TAB PO SCH (08:29)
[2023-05-06] MEDS: DAPAGLIFLOZIN PROPANEDIOL 5 MG TABLET PO SCH (08:29)
[2023-05-06] MEDS: PRAVASTATIN SODIUM 40 MG TAB PO SCH (08:29)
[2023-05-06 08:54] LABS: HCT 45.4 % (39.6-50.0); HGB 14.9 g/dL (13.0-17.0); MCH 29.2 pg (27.0-32.0); MCHC 32.8 g/dL (32.0-37.0); NRBC Per 100 WBC 0 X 10*3/uL (0.00-0.01); Platelet Count 211 X 10*3/uL (140-440); RDW 13.7 % (11.5-14.5); WBC 5.71 X 10*3/uL (4.50-10.00)
--- NOTE | 2023-05-06 11:38 | P.DS ---
Providers Date of admission: 05/04/23 01:52 Expected date of discharge: 05/06/23 Attending physician: Armen Villasenor Consults: 05/04/23 01:51 Consult Physician Routine Consulting Provider: Rod Landry Consult Reason/Comments: Hidradenitis,abscess, failed outpatient treatment Do you want consulting provider notified?: Yes 05/04/23 09:04 Consult Physician Urgent Consulting Provider: Gwen Sow Consult Reason/Comments: skin abscesses, mult, failure of o/P Do you want consulting provider notified?: Yes Primary care physician: [facility] Course: Discharge diagnoses; Right thigh abscess Multiple focal areas of skin inflammation on the back Failed outpatient treatment History of hydradenitis suppurativa Hospital course; patient 72-year-old gentleman past medical history significant for hidradenitis suppurativa, skin abscesses who presented ER for evaluation for multiple skin ab scesses. Patient was being treated outpatient for abscess on the medial side of his right thigh with oral Bactrim. Patient started that he was all right one month back when he started noticing swelling on the medial side of his right thigh, it gradually becoming enlarged and painful. It was no complain a fever or chills. No nausea, abdominal pain. No complaint of chest pain or shortness of breath. Because of this patient went to ER which drained it and placed him on oral antibiotics. Swelling and pain continued to persist even while on antibiotics. Patient went back to the [facility]. Patient was later transferred from [facility] to [facility] Initial lab work done in the ER showed WBC 6, hemoglobin 15.2, platelet count 185, sodium 1:30, potassium 4, BUNs 28, creatinine 1.09, AST 24, AST 24 Patient was admitted to medicine service 05/05. Patient seen and examined. Status post I&D of the right thigh in the ER. Cultures were obtained and are pending, patient needs to remain the hospital until cultures are finalized. Denies any thigh pain. States another small lesion ruptured and drained on the left side of the lower part of his abdominal. 05/06. Patient seen and examined. ID recommended discharging patient on oral Augmentin for 10 days. Outpatient follow-up with ID and general surgery. Being discharged in stable condition PHYSICAL EXAMINATION: GENERAL: The patient is alert and oriented x3, not in any acute distress. Well developed, well nourished. HEENT: Pupils are round and equally reacting to light. EOMI. No scleral icterus. No conjunctival pallor. Normocephalic, atraumatic. No pharyngeal erythema. No thyromegaly. CARDIOVASCULAR: S1 and S2 present. No murmurs, rubs, or gallops. PULMONARY: Chest is clear to auscultation, no wheezing or crackles. ABDOMEN: Soft, nontender, nondistended, normoactive bowel sounds. No palpable organomegaly. MUSCULOSKELETAL: No joint swelling or deformity. EXTREMITIES: Right thigh erythema in the upper medial part of the thigh has improved a lot NEUROLOGICAL: Gross neurological examination did not reveal any focal deficits. SKIN: No rashes. Dictation was produced using [employer] dictation software. please excuse any grammatical, word or spelling errors. Patient Condition at Discharge: Stable Plan - Discharge Summary New Discharge Prescriptions: New Amoxic-Pot Clav 875-125Mg [Augmentin 875-125] 1 tab PO BID 10 Days #20 tab Continue Apixaban [Eliquis] 5 mg PO BID Pravastatin Sodium [Pravachol] 40 mg PO DAILY Citalopram Hydrobromide [CeleXA] 40 mg PO HS Dapagliflozin Propanediol [Farxiga] 5 mg PO DAILY Testosterone Cypionate [Depo-Testosterone] 200 mg IM Q14D Diltiazem Cd [Cardizem CD] 180 mg PO DAILY Theophylline 12 Hour [Atif-Dur] 300 mg PO Q12H Montelukast [Singulair] 10 mg PO HS Flecainide Acetate [Tambocor] 100 mg PO Q12H Albuterol Sulfate [Albuterol Sulfate Hfa] 2 puff INHALATION RT-Q4H PRN PRN Reason: Shortness Of Breath Omeprazole 40 mg PO DAILY Discontinued Sulfamethox-Tmp 800-160Mg [Bactrim DS 800-160 mg] 1 tab PO BID Discharge Medication List Albuterol Sulfate [Albuterol Sulfate Hfa] 2 puff INHALATION RT-Q4H PRN 05/04/23 [History] Apixaban [Eliquis] 5 mg PO BID 05/04/23 [History] Citalopram Hydrobromide [CeleXA] 40 mg PO HS 05/04/23 [History] Dapagliflozin Propanediol [Farxiga] 5 mg PO DAILY 05/04/23 [History] Diltiazem Cd [Cardizem CD] 180 mg PO DAILY 05/04/23 [History] Flecainide Acetate [Tambocor] 100 mg PO Q12H 05/04/23 [History] Montelukast [Singulair] 10 mg PO HS 05/04/23 [History] Omeprazole 40 mg PO DAILY 05/04/23 [History] Pravastatin Sodium [Pravachol] 40 mg PO DAILY 05/04/23 [History] Testosterone Cypionate [Depo-Testosterone] 200 mg IM Q14D 05/04/23 [History] Theophylline 12 Hour [Atif-Dur] 300 mg PO Q12H 05/04/23 [History] Amoxic-Pot Clav 875-125Mg [Augmentin 875-125] 1 tab PO BID 10 Days #20 tab 05/06/23 [Rx] Follow up Appointment(s)/Referral(s): Jenelle Saleem NPC [Family Provider] - 1-2 days Rod Landry MD [STAFF PHYSICIAN] - 1 Week Gwen Sow MD [STAFF PHYSICIAN] - 1 Week Discharge Disposition: HOME SELF-CARE
--- NOTE | 2023-05-06 13:02 | P.PN ---
Subjective Progress Note Date: 05/06/23 Principal diagnosis: Reason for follow up is right posterior thigh area abscess failing outpatient antibiotic therapy Patient is a 52-year-old male with a past medical history significant for diabetes mellitus hypertension hyperlipidemia rheumatoid arthritis COPD apparently the patient did have a history of recurrent skin and soft tissue infection especially to the right upper posterior thigh area patient presenting to the hospital for evaluation of increasing swelling redness and drainage and feeling outpatient oral Bactrim DS therapy On today's evaluation that is 05/06/2023 the patient remains to be afebrile the patient is breathing comfortably on room air patient denies having any chest pain shortness of breath or cough no nausea vomiting abdominal pain or diet the patient right posterior thigh area of induration has decreased pain has decreased in intensity is not draining anymore. Patient white count is 5.71, creatinine 0.80, culture has been negative so far Objective - Vital Signs Vital signs: Vital Signs Temp 97.4 F L 05/06/23 07:00 Pulse 57 L 05/06/23 07:00 Resp 16 05/06/23 07:00 BP 162/78 05/06/23 07:00 Pulse Ox 94 L 05/06/23 07:00 FiO2 Intake & Output 05/05/23 05/06/23 05/06/23 18:59 06:59 18:59 Intake Total 236 Balance 236 Intake: Oral 236 Other: Voiding Method Toilet Toilet Urinal Urinal # Voids 3 1 # Bowel Movements 1 - Exam GENERAL DESCRIPTION: Middle-age male lying in bed in no distress RESPIRATORY SYSTEM: Unlabored breathing , clear to auscultation anteriorly HEART: S1 S2 regular rate and rhythm , ABDOMEN: Soft , no tenderness EXTREMITIES: Right posterior thigh area induration slightly decreased no drainage - Labs CBC & Chem 7: 05/06/23 04:49 05/06/23 04:49 Labs: Abnormal Lab Results - Last 24 Hours (Table) 05/06/23 Range/Units 04:49 Glucose 208 H (74-99) mg/dL Microbiology - Last 24 Hours (Table) 05/04/23 12:39 Gram Stain - Final Leg - Right Wound Culture - Final Assessment and Plan (1) Abscess of right thigh Current Visit: Yes Status: Acute Code(s): L02.415 - CUTANEOUS ABSCESS OF RIGHT LOWER LIMB SNOMED Code(s): 38414080991319927 (2) Hidradenitis suppurativa Current Visit: Yes Status: Acute Code(s): L73.2 - HIDRADENITIS SUPPURATIVA SNOMED Code(s): 80510456 (3) Failure of outpatient treatment Current Visit: Yes Status: Acute Code(s): Z78.9 - OTHER SPECIFIED HEALTH STATUS SNOMED Code(s): 776165774 Plan: 1patient presented to hospital with increasing pain swelling redness to the right posterior thigh area in this patient who did have history of hidradenitis recently received a course of IV followed by oral Bactrim DS failing oral antibiotic therapy, we will need to cover for both resistant gram-positive as well as gram-negative pathogen 2Patient has been evaluated by general surgery did not recommending debridement 3patient has shown overall improvement as for as right posterior thigh abscess cellulitis is concern with culture negative for any resistant pathogen we will consider oral Augmentin on discharge prescription was sent to the pharmacy and case was discussed with admitting physician at the same time patient was educated about how to prevent recurrent infection and all questions concern answered in layman term in the presence of the patient nurse Dictation was produced using [employer] dictation software. please excuse any grammatical, word or spelling errors. Time with Patient: Less than 30
--- NOTE | 2023-05-06 13:15 | P.PN ---
Subjective Progress Note Date: 05/06/23 CHIEF COMPLAINT: Right thigh abscess HISTORY OF PRESENT ILLNESS: Patient had I&D of the right thigh in the ER. Patient reports decrease in pain and swelling. No further drainage. Afebrile. WBC 5.71 PHYSICAL EXAM: VITAL SIGNS: Reviewed. GENERAL: Well-developed in no acute distress. ABDOMEN: Soft. Nondistended. Nontender. NEUROLOGIC: Alert and oriented. Cranial nerves II through XII grossly intact. SKIN: right thigh abscess decrease induration. No erythema. No drainage at this time. ASSESSMENT: 1. Hidradenitis suppurativa of the right thigh PLAN: -Patient can be discharged from surgical standpoint when medically cleared -Discharge antibiotic's per infectious disease -Continue warm compresses -Shower daily -Surgical service will sign off. Please call with any questions or concerns Physician [employer] Equipment Repairer note has been reviewed by physician. Signing provider agrees with the documented findings, assessment, and plan of care. Objective - Vital Signs Vital signs: Vital Signs Temp 97.4 F L 05/06/23 07:00 Pulse 57 L 05/06/23 07:00 Resp 16 05/06/23 07:00 BP 162/78 05/06/23 07:00 Pulse Ox 94 L 05/06/23 07:00 FiO2 Intake & Output 05/05/23 05/06/23 05/06/23 18:59 06:59 18:59 Intake Total 236 240 Balance 236 240 Intake: Oral 236 240 Other: Voiding Method Toilet Toilet Urinal Urinal # Voids 3 1 # Bowel Movements 1 - Labs CBC & Chem 7: 05/06/23 04:49 05/06/23 04:49 Labs: Abnormal Lab Results - Last 24 Hours (Table) 05/06/23 Range/Units 04:49 Glucose 208 H (74-99) mg/dL Microbiology - Last 24 Hours (Table) 05/04/23 12:39 Gram Stain - Final Leg - Right Wound Culture - Final
[2023-05-06] MEDS ORDERED: VANCOMYCIN TROUGH DUE 1 EACH MISC MISCELLANE ONE (14:00)
== END 2023-05-06 13:28 | disposition home or self-care (01) ==
LOC: EC 22:14 → 6NMEDSUR 05-04 01:52
PROVIDERS: ADMIT Hospitalist; ATTEND Hospitalist
DX: L02.416 Cutaneous abscess of left lower limb (principal); L02.415 Cutaneous abscess of right lower limb; L73.2 Hidradenitis suppurativa; I10 Essential (primary) hypertension; E78.5 Hyperlipidemia, unspecified; E11.9 Type 2 diabetes mellitus without complications; J44.9 Chronic obstructive pulmonary disease, unspecified; I48.91 Unspecified atrial fibrillation; F17.200 Nicotine dependence, unspecified, uncomplicated; Z79.01 Long term (current) use of anticoagulants; Z79.84 Long term (current) use of oral hypoglycemic drugs; Z79.899 Other long term (current) drug therapy; Z88.6 Allergy status to analgesic agent
CPT/HCPCS: 96366 ×3; 96376; 96365; 96367; 96375; 99285; 80053 ×3; 85025; 85027 ×2; 87070; 87205; 87075; G0378 ×3; J2543; J3370 ×3; J2270; J0295 ×3; J1885